=== PATIENT | male | born 1965 | race Hispanic/Latino ===

== ENCOUNTER 2021-09-11 14:16 | Inpatient (IN) | payer OTHER ==
[~2021-09-11] VITALS: Ht 167.6 cm; Wt 127.3 kg
[2021-09-11 15:53] LABS: BASOPHILS % (AUTO) 0.4 % (0.0-5.0); EOSINOPHILS % (AUTO) 0.2 % (0.0-8.0); LYMPHOCYTES % (AUTO) 7.2 % (21.0-51.0); MEAN CORPUSCULAR HEMOGLOBIN 26.9 pg (27.0-33.0); MEAN CORPUSCULAR HGB CONC 32.9 g/dL (32.0-36.0); MEAN CORPUSCULAR VOLUME 81.9 fL (79-99); MONOCYTES % (AUTO) 7.7 % (3.0-13.0); NEUTROPHILS % (AUTO) 81.2 % (40.0-77.0); PLATELET COUNT (AUTO) 549 K/uL (130-400); RED BLOOD CELL COUNT(AUTO) 4.64 MIL/uL (4.50-6.20); RED CELL DISTRIBUTION WIDTH 14.1 % (11.0-15.5); WHITE BLOOD COUNT (AUTO) 28.3 K/uL (4.8-10.8)
[2021-09-11 16:10] LABS: INR 1.28 (0.85-1.15); PROTHROMBIN TIME 13.6 SEC (9.6-11.6)
[2021-09-11 16:15] LABS: CREATININE 1.5 mg/dL (0.5-1.5); POTASSIUM 3.8 mmol/L (3.5-5.1)
[2021-09-11 16:21] LABS: ALBUMIN 2.3 g/dL (3.5-5.0); BILIRUBIN,TOTAL 0.9 mg/dL (0.2-1.0); TOTAL PROTEIN, SERUM 8.9 g/dL (6.0-8.3)
[2021-09-11 16:27] LABS: APPEARANCE,URINE CLOUDY (CLEAR); BILIRUBIN,URINE SMALL (NEGATIVE); COLOR,URINE DARK YELLOW (YELLOW); GLUCOSE, URINE (UA) NEGATIVE (NEGATIVE); KETONES,URINE 5 mg/dL (NEGATIVE); LEUKOCYTE ESTERASE ,URINE SMALL (NEGATIVE); NITRATE,URINE NEGATIVE (NEGATIVE); OCCULT BLOOD,URINE LARGE (NEGATIVE); PROTEIN,URINE 100 mg/dL (NEGATIVE); UROBILINOGEN,URINE 0.2 mg/dL (0.2-1.0)
[2021-09-11] MEDS ORDERED: CEFEPIME HCL 1 GM VIAL ONE (16:36)
[2021-09-11 16:57] LABS: RBC,URINE 51-100 /HPF (0-1); WBC,URINE 51-100 /HPF (0-1)
[2021-09-11 16:58] LABS: BACTERIA,URINE Few /HPF (None Seen); YEAST,URINE BUDDING Moderate /HPF (None Seen)
[2021-09-11] MEDS ORDERED: CEFEPIME HCL 2 GM VIAL IVP SCH (17:00)
[2021-09-11] MEDS ORDERED: KETOROLAC 15MG/ML VIAL (15MG/ML) IV ONE (17:30)
[2021-09-11] MEDS ORDERED: FLUCONAZOLE 100 MG TAB PO ONE (17:30)
[2021-09-11] MEDS ORDERED: 0.9%NACL 1000ML 1,000 ML IV ONE ×2 (17:41→18:00)
[2021-09-11] MEDS ORDERED: IOHEXOL-350 75 ML VIAL IV ONE (17:49)
[2021-09-11] MEDS ORDERED: VANCOMYCIN PROTOCOL PER PHARMACY IV SCH (18:00)
[2021-09-11] MEDS ORDERED: VANCOMYCIN 2GM/500ML NS IV ONE ×2 (18:00)
[2021-09-11] MEDS ORDERED: FLUCONAZOLE 100 MG TAB ONE (21:18)
[2021-09-11] MEDS: LACTATED RINGERS 1000ML 1,000 ML IV SCH (21:21)
[2021-09-11] MEDS: MEROPENEM 1 GM VIAL IVP SCH (21:22)
[2021-09-11] MEDS: INSULIN HUMULIN R 100 UNIT/ML 3ML SQ SCH (21:51)
[2021-09-11] MEDS ORDERED: METF-445 PO (23:52)
[2021-09-11] MEDS ORDERED: LEVO500T90 PO (23:52)
[2021-09-11] MEDS ORDERED: PRAV10TA39 PO (23:52)
[2021-09-11] MEDS ORDERED: SEMA1PEN3 SQ (23:52)
[2021-09-11] MEDS ORDERED: LEVO-170 PO (23:52)
[2021-09-11] MEDS ORDERED: LOSA25TA41 PO (23:52)
[2021-09-12] VITALS (29 sets, daily range): BP systolic 94–130; BP diastolic 55–80
[2021-09-12] MEDS: MEROPENEM 1 GM VIAL IVP SCH ×3 (01:30→17:21)
[2021-09-12] MEDS: LACTATED RINGERS 1000ML 1,000 ML IV SCH ×2 (03:30→21:53)
[2021-09-12 06:06] LABS: BASOPHILS % (AUTO) 0.2 % (0.0-5.0); LYMPHOCYTES % (AUTO) 7.9 % (21.0-51.0); MEAN CORPUSCULAR HEMOGLOBIN 26.5 pg (27.0-33.0); MEAN CORPUSCULAR HGB CONC 32.4 g/dL (32.0-36.0); MEAN CORPUSCULAR VOLUME 81.9 fL (79-99); MONOCYTES % (AUTO) 9.2 % (3.0-13.0); NEUTROPHILS % (AUTO) 77.7 % (40.0-77.0); PLATELET COUNT (AUTO) 520 K/uL (130-400); RED BLOOD CELL COUNT(AUTO) 4.15 MIL/uL (4.50-6.20); RED CELL DISTRIBUTION WIDTH 14.2 % (11.0-15.5); WHITE BLOOD COUNT (AUTO) 26.4 K/uL (4.8-10.8)
[2021-09-12 06:35] LABS: CREATININE 1.3 mg/dL (0.5-1.5); POTASSIUM 3.5 mmol/L (3.5-5.1)
[2021-09-12] MEDS: INSULIN HUMULIN R 100 UNIT/ML 3ML SQ SCH ×2 (08:10→21:53)
[2021-09-12] MEDS: 0.9% NACL 250ML 250 ML IV SCH ×2 (09:45→18:00)
[2021-09-12] MEDS: VANCOMYCIN 750MG VIAL IVPB SCH ×2 (09:45→18:49)
[2021-09-12] MEDS ORDERED: LIDOCAINE PF 100MG/5ML (2%) SYRINGE 5ML ONE (12:17)
[2021-09-12] MEDS ORDERED: SUCCINYLCHOLINE CHLORIDE 20 MG/ML 10 ML VIAL ONE (12:17)
[2021-09-12] MEDS ORDERED: ONDANSETRON 4MG INJ ONE (12:18)
[2021-09-12] MEDS ORDERED: FENTANYL CITRATE PF 50 MCG/1 ML 2ML VIAL ONE ×3 (12:18→15:07)
[2021-09-12] MEDS ORDERED: ROCURONIUM 10MG/1ML SYR 10 MG/ML ML ONE ×2 (12:18→13:01)
[2021-09-12] MEDS ORDERED: PROPOFOL 10 MG/ML 20ML VIAL IV ONE (12:18)
[2021-09-12] MEDS ORDERED: MIDAZOLAM HCL 1 MG/ML 2ML VIAL ONE (12:19)
[2021-09-12] MEDS ORDERED: FENTANYL CITRATE PF 50 MCG/1 ML 5ML AMP IV ONE (13:00)
[2021-09-12] MEDS ORDERED: MEPERIDINE-PF 25 MG/ML SYG ONE (14:07)
[2021-09-12] MEDS ORDERED: GLYCOPYRROLATE 1 MG/5 ML SYRINGE ONE (14:42)
[2021-09-12] MEDS ORDERED: NEOSTIGMINE 5MG/5ML SYR IV ONE (14:42)
[2021-09-12 16:10] LABS: HEMOGLOBIN A1C 10.4 % (4.0-6.0)
[2021-09-13] MEDS: MEROPENEM 1 GM VIAL IVP SCH ×3 (02:45→15:54)
[2021-09-13 03:36] VITALS: BP 105/57
[2021-09-13] MEDS: ACETAMINOPHEN 325 MG TAB PO PRN ×3 (03:36→21:54)
[2021-09-13] MEDS: VANCOMYCIN 750MG VIAL IVPB SCH (05:49)
[2021-09-13] MEDS: 0.9% NACL 250ML 250 ML IV SCH ×2 (05:49→13:00)
[2021-09-13] MEDS: INSULIN HUMULIN R 100 UNIT/ML 3ML SQ SCH ×6 (05:49→21:00)
[2021-09-13 06:10] LABS: BASOPHILS % (AUTO) 0.3 % (0.0-5.0); EOSINOPHILS % (AUTO) 0.7 % (0.0-8.0); HEMATOCRIT 27.5 % (42-54); LYMPHOCYTES % (AUTO) 12.2 % (21.0-51.0); MEAN CORPUSCULAR HEMOGLOBIN 27.6 pg (27.0-33.0); MEAN CORPUSCULAR HGB CONC 33.1 g/dL (32.0-36.0); MEAN CORPUSCULAR VOLUME 83.3 fL (79-99); MONOCYTES % (AUTO) 7.1 % (3.0-13.0); NEUTROPHILS % (AUTO) 73.1 % (40.0-77.0); PLATELET COUNT (AUTO) 451 K/uL (130-400); RED CELL DISTRIBUTION WIDTH 14.7 % (11.0-15.5); WHITE BLOOD COUNT (AUTO) 23.1 K/uL (4.8-10.8)
[2021-09-13 06:24] LABS: ALBUMIN 1.5 g/dL (3.5-5.0); CREATININE 0.9 mg/dL (0.5-1.5); POTASSIUM 3.4 mmol/L (3.5-5.1); TOTAL PROTEIN, SERUM 6.4 g/dL (6.0-8.3)
[2021-09-13] MEDS ORDERED: COMPOUND IV REFRIGERATED 1 EACH IVSOLN MISC PRN (07:00)
[2021-09-13] MEDS: VANCOMYCIN 1.25GM/NS 250ML IVPB SCH ×4 (07:27→21:56)
[2021-09-13] MEDS: LACTATED RINGERS 1000ML 1,000 ML IV SCH (07:28)
[2021-09-13 07:45] VITALS: BP 107/67
[2021-09-13] MEDS: KCL 20 MEQ ERTAB PO SCH (08:56)
[2021-09-13] MEDS: GABAPENTIN 300 MG CAPSULE PO SCH ×2 (09:24→21:53)
[2021-09-13 11:00] VITALS: BP 117/69
[2021-09-13] MEDS ORDERED: COMPOUND IV MISC 1 EACH IVSOLN MISC PRN (13:00)
[2021-09-13 16:00] VITALS: BP 120/67
[2021-09-13] MEDS ORDERED: ACETAMINOPHEN 325 MG TAB PO PRN (18:30)
[2021-09-13 20:00] VITALS: BP 108/58
[2021-09-13] MEDS: INSULIN GLARGINE 100 UNITS/ML 10 ML VIAL SQ SCH (21:51)
[2021-09-14] VITALS: BP 120/60
[2021-09-14] MEDS: MEROPENEM 1 GM VIAL IVP SCH ×3 (01:43→18:19)
[2021-09-14 04:00] VITALS: BP 133/64
[2021-09-14 05:21] LABS: BASOPHILS % (AUTO) 0.3 % (0.0-5.0); EOSINOPHILS % (AUTO) 1.1 % (0.0-8.0); HEMATOCRIT 29.9 % (42-54); MEAN CORPUSCULAR HEMOGLOBIN 26.8 pg (27.0-33.0); MEAN CORPUSCULAR HGB CONC 32.1 g/dL (32.0-36.0); MEAN CORPUSCULAR VOLUME 83.5 fL (79-99); MONOCYTES % (AUTO) 8.2 % (3.0-13.0); NEUTROPHILS % (AUTO) 65.7 % (40.0-77.0); PLATELET COUNT (AUTO) 462 K/uL (130-400); RED BLOOD CELL COUNT(AUTO) 3.58 MIL/uL (4.50-6.20); RED CELL DISTRIBUTION WIDTH 14.5 % (11.0-15.5); WHITE BLOOD COUNT (AUTO) 19.2 K/uL (4.8-10.8)
[2021-09-14 05:44] LABS: % IRON SATURATION 17.8 % (30-44)
[2021-09-14 05:55] LABS: POTASSIUM 3.3 mmol/L (3.5-5.1); THYROID STIMULATING HORMONE 2.47 uIU/mL (0.36-3.74)
[2021-09-14] MEDS: 0.9% NACL 250ML 250 ML IV SCH (06:00)
[2021-09-14 06:15] LABS: CRP QUANTITATIVE 217.1 mg/L (0.00-9.0)
[2021-09-14] MEDS: INSULIN HUMULIN R 100 UNIT/ML 3ML SQ SCH ×7 (06:32→20:44)
[2021-09-14 06:59] LABS: CREATININE 0.8 mg/dL (0.5-1.5)
[2021-09-14 07:53] VITALS: BP 134/66
[2021-09-14] MEDS: KCL 20 MEQ ERTAB PO SCH (08:30)
[2021-09-14] MEDS ORDERED: KCL 20 MEQ ERTAB PO SCH (09:00)
[2021-09-14] MEDS ORDERED: EPOETIN ALFA-EPBX (NON-ESRD) 10,000 UNIT/ML VIAL SQ SCH (09:30)
[2021-09-14] MEDS: GABAPENTIN 300 MG CAPSULE PO SCH ×2 (10:06→21:42)
[2021-09-14] MEDS: VANCOMYCIN 1.25GM/NS 250ML IVPB SCH ×2 (10:08)
[2021-09-14] MEDS: IRON SUCROSE COMPLEX 300 MG in 0.9%NACL 50ML 50 ML IV SCH (10:09)
[2021-09-14 12:00] VITALS: BP 159/74
[2021-09-14] MEDS ORDERED: FLUCONAZOLE 100 MG TAB PO SCH (14:00)
[2021-09-14 16:00] VITALS: BP 130/65
[2021-09-14 20:00] VITALS: BP 130/76
[2021-09-14] MEDS: FLUCONAZOLE 100 MG TAB PO SCH (21:43)
[2021-09-14] MEDS: VANCOMYCIN 1G 1.5 GM in 0.9% NACL 250ML 250 ML IVPB SCH (21:43)
[2021-09-14] MEDS: INSULIN GLARGINE 100 UNITS/ML 10 ML VIAL SQ SCH (21:45)
[2021-09-15] VITALS: BP_SYST 115; BP_SYST 116; BP_DIAS 71; BP_DIAS 80
[2021-09-15] MEDS: MEROPENEM 1 GM VIAL IVP SCH ×3 (01:25→17:12)
[2021-09-15 04:00] VITALS: BP 116/71
[2021-09-15 04:05] LABS: BASOPHILS % (AUTO) 0.6 % (0.0-5.0); EOSINOPHILS % (AUTO) 2.3 % (0.0-8.0); HEMATOCRIT 32.4 % (42-54); MEAN CORPUSCULAR HEMOGLOBIN 27.1 pg (27.0-33.0); MEAN CORPUSCULAR HGB CONC 32.4 g/dL (32.0-36.0); MEAN CORPUSCULAR VOLUME 83.5 fL (79-99); MONOCYTES % (AUTO) 5.2 % (3.0-13.0); NEUTROPHILS % (AUTO) 63.7 % (40.0-77.0); NUCLEATED RED BLOOD CELLS 0.1 % (0.0-0.19); PLATELET COUNT (AUTO) 529 K/uL (130-400); RED BLOOD CELL COUNT(AUTO) 3.88 MIL/uL (4.50-6.20); RED CELL DISTRIBUTION WIDTH 14.6 % (11.0-15.5); WHITE BLOOD COUNT (AUTO) 19.2 K/uL (4.8-10.8)
[2021-09-15 04:32] LABS: CREATININE 0.8 mg/dL (0.5-1.5); POTASSIUM 3.4 mmol/L (3.5-5.1)
[2021-09-15 05:09] LABS: CRP QUANTITATIVE 175.2 mg/L (0.00-9.0)
[2021-09-15] MEDS: 0.9% NACL 250ML 250 ML IV SCH ×2 (06:00→22:36)
[2021-09-15] MEDS: INSULIN HUMULIN R 100 UNIT/ML 3ML SQ SCH ×7 (06:05→21:00)
[2021-09-15 08:07] VITALS: BP 125/77
[2021-09-15] MEDS: GABAPENTIN 300 MG CAPSULE PO SCH ×2 (09:53→22:34)
[2021-09-15] MEDS: KCL 20 MEQ ERTAB PO SCH (09:54)
[2021-09-15] MEDS: IRON SUCROSE COMPLEX 300 MG in 0.9%NACL 50ML 50 ML IV SCH (09:55)
[2021-09-15] MEDS: VANCOMYCIN 1G 1.5 GM in 0.9% NACL 250ML 250 ML IVPB SCH ×2 (09:56→22:36)
[2021-09-15 13:04] VITALS: BP 136/68
[2021-09-15] MEDS: HYDROMORPHONE 1 MG INJ IVP PRN (14:44)
[2021-09-15] MEDS ORDERED: KCL 20 MEQ ERTAB PO SCH (15:00)
[2021-09-15 17:08] VITALS: BP 122/79
[2021-09-15 20:00] VITALS: BP 118/71
[2021-09-15] MEDS: FLUCONAZOLE 100 MG TAB PO SCH (22:35)
[2021-09-15] MEDS: INSULIN GLARGINE 100 UNITS/ML 10 ML VIAL SQ SCH (22:37)
[2021-09-16] VITALS: BP 136/71
[2021-09-16] MEDS: MEROPENEM 1 GM VIAL IVP SCH ×3 (01:14→17:17)
[2021-09-16 04:00] VITALS: BP 117/70
[2021-09-16 04:06] LABS: BASOPHILS % (AUTO) 0.6 % (0.0-5.0); EOSINOPHILS % (AUTO) 3.5 % (0.0-8.0); HEMATOCRIT 31.5 % (42-54); LYMPHOCYTES % (AUTO) 18.3 % (21.0-51.0); MEAN CORPUSCULAR HEMOGLOBIN 27.5 pg (27.0-33.0); MEAN CORPUSCULAR HGB CONC 32.1 g/dL (32.0-36.0); MEAN CORPUSCULAR VOLUME 85.8 fL (79-99); MONOCYTES % (AUTO) 5.6 % (3.0-13.0); NEUTROPHILS % (AUTO) 60.2 % (40.0-77.0); NUCLEATED RED BLOOD CELLS 0.2 % (0.0-0.19); PLATELET COUNT (AUTO) 516 K/uL (130-400); RED BLOOD CELL COUNT(AUTO) 3.67 MIL/uL (4.50-6.20); RED CELL DISTRIBUTION WIDTH 14.6 % (11.0-15.5); WHITE BLOOD COUNT (AUTO) 21.3 K/uL (4.8-10.8)
[2021-09-16 04:28] LABS: CREATININE 0.9 mg/dL (0.5-1.5); CRP QUANTITATIVE 161.3 mg/L (0.00-9.0); MAGNESIUM 1.4 mg/dL (1.80-2.40); POTASSIUM 4.4 mmol/L (3.5-5.1)
[2021-09-16] MEDS: INSULIN HUMULIN R 100 UNIT/ML 3ML SQ SCH ×7 (06:05→20:23)
[2021-09-16 07:58] VITALS: BP 138/70
[2021-09-16] MEDS: ZINC SULFATE 220 CAPSULE PO SCH (10:20)
[2021-09-16] MEDS: ASCORBIC ACID 500 MG TAB PO SCH (10:20)
[2021-09-16] MEDS: GABAPENTIN 300 MG CAPSULE PO SCH ×2 (10:20→20:48)
[2021-09-16] MEDS: IRON SUCROSE COMPLEX 300 MG in 0.9%NACL 50ML 50 ML IV SCH (10:24)
[2021-09-16] MEDS: VANCOMYCIN 1G 1.5 GM in 0.9% NACL 250ML 250 ML IVPB SCH ×2 (10:27→20:49)
[2021-09-16 11:50] VITALS: BP 129/78
[2021-09-16 15:50] VITALS: BP 138/81
[2021-09-16 20:00] VITALS: BP 134/71
[2021-09-16] MEDS: FLUCONAZOLE 100 MG TAB PO SCH (20:48)
[2021-09-16] MEDS: INSULIN GLARGINE 100 UNITS/ML 10 ML VIAL SQ SCH (20:50)
[2021-09-16] MEDS: ACETAMINOPHEN 325 MG TAB PO PRN (23:41)
[2021-09-17] VITALS (7 sets, daily range): BP systolic 106–124; BP diastolic 62–73
[2021-09-17] MEDS: MEROPENEM 1 GM VIAL IVP SCH ×3 (02:02→17:34)
[2021-09-17] MEDS: ACETAMINOPHEN 325 MG TAB PO PRN ×2 (05:21→21:07)
[2021-09-17] MEDS: INSULIN HUMULIN R 100 UNIT/ML 3ML SQ SCH ×7 (06:08→21:11)
[2021-09-17] MEDS: ASCORBIC ACID 500 MG TAB PO SCH (09:44)
[2021-09-17] MEDS: GABAPENTIN 300 MG CAPSULE PO SCH (09:44)
[2021-09-17] MEDS: ZINC SULFATE 220 CAPSULE PO SCH (09:44)
[2021-09-17] MEDS: IRON SUCROSE COMPLEX 300 MG in 0.9%NACL 50ML 50 ML IV SCH (09:51)
[2021-09-17] MEDS: VANCOMYCIN 1G 1.5 GM in 0.9% NACL 250ML 250 ML IVPB SCH ×2 (09:53→21:08)
[2021-09-17] MEDS ORDERED: MAGNESIUM 2GM PREMIX 50ML 50 ML IV SCH (16:30)
[2021-09-17] MEDS ORDERED: RENAL DOSE IV SCH (17:00)
[2021-09-17] MEDS: GABAPENTIN 100 MG CAPSULE PO SCH (21:06)
[2021-09-17] MEDS: FLUCONAZOLE 100 MG TAB PO SCH (21:06)
[2021-09-17] MEDS: INSULIN GLARGINE 100 UNITS/ML 10 ML VIAL SQ SCH (21:10)
[2021-09-18] MEDS: MEROPENEM 1 GM VIAL IVP SCH ×2 (01:20→08:24)
[2021-09-18 05:12] VITALS: BP_SYST 124; BP_SYST 136; BP_DIAS 68; BP_DIAS 72
[2021-09-18 05:20] LABS: BASOPHILS % (AUTO) 0.8 % (0.0-5.0); EOSINOPHILS % (AUTO) 4.9 % (0.0-8.0); HEMATOCRIT 33.7 % (42-54); LYMPHOCYTES % (AUTO) 25.8 % (21.0-51.0); MEAN CORPUSCULAR HEMOGLOBIN 27.2 pg (27.0-33.0); MEAN CORPUSCULAR HGB CONC 31.8 g/dL (32.0-36.0); MEAN CORPUSCULAR VOLUME 85.8 fL (79-99); MONOCYTES % (AUTO) 5.9 % (3.0-13.0); NEUTROPHILS % (AUTO) 53.3 % (40.0-77.0); NUCLEATED RED BLOOD CELLS 0.2 % (0.0-0.19); PLATELET COUNT (AUTO) 640 K/uL (130-400); RED BLOOD CELL COUNT(AUTO) 3.93 MIL/uL (4.50-6.20); WHITE BLOOD COUNT (AUTO) 16.4 K/uL (4.8-10.8)
[2021-09-18 05:34] LABS: BILIRUBIN,TOTAL 0.3 mg/dL (0.2-1.0); CREATININE 0.8 mg/dL (0.5-1.5); CRP QUANTITATIVE 81.2 mg/L (0.00-9.0); MAGNESIUM 1.7 mg/dL (1.80-2.40); PHOSPHORUS 3.4 mg/dL (2.5-4.9); POTASSIUM 4.6 mmol/L (3.5-5.1); TOTAL PROTEIN, SERUM 7.6 g/dL (6.0-8.3)
[2021-09-18 06:31] LABS: ERYTHROCYTE SEDIMENTATION RATE 69 MM/HR (0-20)
[2021-09-18] MEDS: INSULIN HUMULIN R 100 UNIT/ML 3ML SQ SCH ×7 (06:37→20:34)
[2021-09-18 08:00] VITALS: BP 106/70
[2021-09-18] MEDS: ZINC SULFATE 220 CAPSULE PO SCH (08:23)
[2021-09-18] MEDS: GABAPENTIN 100 MG CAPSULE PO SCH ×2 (08:23→20:34)
[2021-09-18] MEDS: ASCORBIC ACID 500 MG TAB PO SCH (08:23)
[2021-09-18] MEDS: VANCOMYCIN 1G 1.5 GM in 0.9% NACL 250ML 250 ML IVPB SCH (08:47)
[2021-09-18 11:37] VITALS: BP 114/68
[2021-09-18] MEDS: HYDROMORPHONE 1 MG INJ IVP PRN (14:16)
[2021-09-18 16:00] VITALS: BP 121/74
[2021-09-18] MEDS: CEFTRIAXONE 2GM VIAL IVP SCH (17:21)
[2021-09-18 20:29] VITALS: BP 103/68
[2021-09-18] MEDS: FLUCONAZOLE 100 MG TAB PO SCH (20:33)
[2021-09-18] MEDS: INSULIN GLARGINE 100 UNITS/ML 10 ML VIAL SQ SCH (20:34)
[2021-09-18] MEDS: ACETAMINOPHEN 325 MG TAB PO PRN (20:35)
[2021-09-18 23:48] VITALS: BP 99/66
[2021-09-19 05:11] VITALS: BP 104/69
[2021-09-19 06:12] LABS: BASOPHILS % (AUTO) 0.6 % (0.0-5.0); HEMATOCRIT 34.8 % (42-54); MEAN CORPUSCULAR HEMOGLOBIN 27.4 pg (27.0-33.0); MEAN CORPUSCULAR HGB CONC 31.9 g/dL (32.0-36.0); MEAN CORPUSCULAR VOLUME 85.9 fL (79-99); MONOCYTES % (AUTO) 6.1 % (3.0-13.0); NEUTROPHILS % (AUTO) 59.5 % (40.0-77.0); PLATELET COUNT (AUTO) 672 K/uL (130-400); RED BLOOD CELL COUNT(AUTO) 4.05 MIL/uL (4.50-6.20); RED CELL DISTRIBUTION WIDTH 15.7 % (11.0-15.5); WHITE BLOOD COUNT (AUTO) 16.1 K/uL (4.8-10.8)
[2021-09-19] MEDS: INSULIN HUMULIN R 100 UNIT/ML 3ML SQ SCH ×7 (06:32→21:14)
[2021-09-19 06:35] LABS: ALBUMIN 2.1 g/dL (3.5-5.0); BILIRUBIN,TOTAL 0.3 mg/dL (0.2-1.0); CREATININE 0.8 mg/dL (0.5-1.5); POTASSIUM 4.7 mmol/L (3.5-5.1); TOTAL PROTEIN, SERUM 7.9 g/dL (6.0-8.3)
[2021-09-19 08:00] VITALS: BP 108/71
[2021-09-19] MEDS: ZINC SULFATE 220 CAPSULE PO SCH (08:03)
[2021-09-19] MEDS: MAGNESIUM OXIDE 400 MG TABLET PO SCH (08:03)
[2021-09-19] MEDS: GABAPENTIN 100 MG CAPSULE PO SCH ×2 (08:04→20:18)
[2021-09-19] MEDS: ASCORBIC ACID 500 MG TAB PO SCH (08:04)
[2021-09-19 12:00] VITALS: BP 130/68
[2021-09-19 16:00] VITALS: BP 135/75
[2021-09-19] MEDS: CEFTRIAXONE 2GM VIAL IVP SCH (17:15)
[2021-09-19 20:00] VITALS: BP 113/67
[2021-09-19] MEDS: FLUCONAZOLE 100 MG TAB PO SCH (20:18)
[2021-09-19] MEDS: ACETAMINOPHEN 325 MG TAB PO PRN (20:19)
[2021-09-19] MEDS: INSULIN GLARGINE 100 UNITS/ML 10 ML VIAL SQ SCH (21:14)
[2021-09-20] VITALS: BP 103/68
[2021-09-20 04:00] VITALS: BP 102/68
[2021-09-20 04:57] LABS: BASOPHILS % (AUTO) 0.4 % (0.0-5.0); EOSINOPHILS % (AUTO) 4.8 % (0.0-8.0); HEMATOCRIT 37.1 % (42-54); LYMPHOCYTES % (AUTO) 27.6 % (21.0-51.0); MEAN CORPUSCULAR HEMOGLOBIN 26.8 pg (27.0-33.0); MEAN CORPUSCULAR HGB CONC 30.7 g/dL (32.0-36.0); MEAN CORPUSCULAR VOLUME 87.1 fL (79-99); MONOCYTES % (AUTO) 6.3 % (3.0-13.0); NEUTROPHILS % (AUTO) 55.7 % (40.0-77.0); PLATELET COUNT (AUTO) 671 K/uL (130-400); RED BLOOD CELL COUNT(AUTO) 4.26 MIL/uL (4.50-6.20); RED CELL DISTRIBUTION WIDTH 16.3 % (11.0-15.5); WHITE BLOOD COUNT (AUTO) 13.9 K/uL (4.8-10.8)
[2021-09-20 05:15] LABS: ALBUMIN 2.3 g/dL (3.5-5.0); BILIRUBIN,TOTAL 0.2 mg/dL (0.2-1.0); CREATININE 0.9 mg/dL (0.5-1.5); POTASSIUM 4.9 mmol/L (3.5-5.1); TOTAL PROTEIN, SERUM 8.4 g/dL (6.0-8.3)
[2021-09-20] MEDS: INSULIN HUMULIN R 100 UNIT/ML 3ML SQ SCH ×7 (06:32→20:38)
[2021-09-20 07:59] VITALS: BP 105/73
[2021-09-20] MEDS: GABAPENTIN 100 MG CAPSULE PO SCH ×2 (09:07→20:38)
[2021-09-20] MEDS: ASCORBIC ACID 500 MG TAB PO SCH (09:07)
[2021-09-20] MEDS: MAGNESIUM OXIDE 400 MG TABLET PO SCH (09:07)
[2021-09-20] MEDS: ZINC SULFATE 220 CAPSULE PO SCH (09:07)
[2021-09-20 11:11] VITALS: BP 104/69
[2021-09-20 15:11] LABS: INR 1.08 (0.85-1.15); PROTHROMBIN TIME 11.7 SEC (9.6-11.6)
[2021-09-20 15:13] LABS: PARTIAL THROMBOPLASTIN TIME 29.4 SEC (26.3-35.5)
[2021-09-20 15:36] VITALS: BP 107/76
[2021-09-20] MEDS: CEFTRIAXONE 2GM VIAL IVP SCH (17:17)
[2021-09-20 20:00] VITALS: BP 109/70
[2021-09-20] MEDS: FLUCONAZOLE 100 MG TAB PO SCH (20:38)
[2021-09-20] MEDS: INSULIN GLARGINE 100 UNITS/ML 10 ML VIAL SQ SCH (20:39)
[2021-09-20] MEDS: ACETAMINOPHEN 325 MG TAB PO PRN (20:48)
[2021-09-21] VITALS: BP 107/69
[2021-09-21 04:00] VITALS: BP 101/63
[2021-09-21] MEDS: INSULIN HUMULIN R 100 UNIT/ML 3ML SQ SCH ×7 (05:55→19:51)
[2021-09-21 08:06] VITALS: BP 111/67
[2021-09-21 09:52] LABS: HEMATOCRIT 36.7 % (42-54); MEAN CORPUSCULAR HEMOGLOBIN 27.5 pg (27.0-33.0); MEAN CORPUSCULAR HGB CONC 31.9 g/dL (32.0-36.0); MEAN CORPUSCULAR VOLUME 86.2 fL (79-99); NUCLEATED RED BLOOD CELLS 0.1 % (0.0-0.19); RED BLOOD CELL COUNT(AUTO) 4.26 MIL/uL (4.50-6.20); RED CELL DISTRIBUTION WIDTH 16.6 % (11.0-15.5); WHITE BLOOD COUNT (AUTO) 14.6 K/uL (4.8-10.8)
[2021-09-21 10:09] LABS: POTASSIUM 4.2 mmol/L (3.5-5.1)
[2021-09-21 11:17] VITALS: BP 114/51
[2021-09-21] MEDS: ASCORBIC ACID 500 MG TAB PO SCH (11:30)
[2021-09-21] MEDS: GABAPENTIN 100 MG CAPSULE PO SCH ×2 (11:30→19:49)
[2021-09-21] MEDS: ZINC SULFATE 220 CAPSULE PO SCH (11:31)
[2021-09-21] MEDS: MAGNESIUM OXIDE 400 MG TABLET PO SCH (11:31)
[2021-09-21] MEDS: ACETAMINOPHEN 325 MG TAB PO PRN ×2 (11:31→19:50)
[2021-09-21 15:53] VITALS: BP 112/70
[2021-09-21] MEDS ORDERED: HYDROMORPHONE 1 MG INJ IVP PRN (17:00)
[2021-09-21] MEDS: CEFTRIAXONE 2GM VIAL IVP SCH (17:01)
[2021-09-21 19:41] VITALS: BP 103/66
[2021-09-21] MEDS: FLUCONAZOLE 100 MG TAB PO SCH (19:49)
[2021-09-21] MEDS: INSULIN GLARGINE 100 UNITS/ML 10 ML VIAL SQ SCH (19:50)
[2021-09-22] VITALS (7 sets, daily range): BP systolic 97–120; BP diastolic 67–75
[2021-09-22] MEDS: INSULIN HUMULIN R 100 UNIT/ML 3ML SQ SCH ×8 (05:41→20:40)
[2021-09-22 08:35] LABS: HEMATOCRIT 36.2 % (42-54); MEAN CORPUSCULAR HEMOGLOBIN 26.8 pg (27.0-33.0); MEAN CORPUSCULAR HGB CONC 31.2 g/dL (32.0-36.0); MEAN CORPUSCULAR VOLUME 85.8 fL (79-99); RED BLOOD CELL COUNT(AUTO) 4.22 MIL/uL (4.50-6.20); RED CELL DISTRIBUTION WIDTH 16.5 % (11.0-15.5); WHITE BLOOD COUNT (AUTO) 14.2 K/uL (4.8-10.8)
[2021-09-22 08:42] LABS: CREATININE 0.9 mg/dL (0.5-1.5); POTASSIUM 4.5 mmol/L (3.5-5.1)
[2021-09-22] MEDS: MAGNESIUM OXIDE 400 MG TABLET PO SCH (08:54)
[2021-09-22] MEDS: GABAPENTIN 100 MG CAPSULE PO SCH ×2 (08:54→20:30)
[2021-09-22] MEDS: ASCORBIC ACID 500 MG TAB PO SCH (08:54)
[2021-09-22] MEDS: ZINC SULFATE 220 CAPSULE PO SCH (08:54)
[2021-09-22] MEDS: CEFTRIAXONE 2GM VIAL IVP SCH (17:02)
[2021-09-22] MEDS: FLUCONAZOLE 100 MG TAB PO SCH (20:30)
[2021-09-22] MEDS: INSULIN GLARGINE 100 UNITS/ML 10 ML VIAL SQ SCH (20:41)
[2021-09-22] MEDS: ACETAMINOPHEN 325 MG TAB PO PRN (20:42)
[2021-09-23 04:07] VITALS: BP 114/70
[2021-09-23] MEDS: INSULIN HUMULIN R 100 UNIT/ML 3ML SQ SCH ×7 (05:17→21:32)
[2021-09-23 06:03] LABS: BASOPHILS % (AUTO) 0.4 % (0.0-5.0); EOSINOPHILS % (AUTO) 2.9 % (0.0-8.0); HEMATOCRIT 35.7 % (42-54); LYMPHOCYTES % (AUTO) 29.8 % (21.0-51.0); MEAN CORPUSCULAR HEMOGLOBIN 26.9 pg (27.0-33.0); MEAN CORPUSCULAR HGB CONC 31.4 g/dL (32.0-36.0); MEAN CORPUSCULAR VOLUME 85.6 fL (79-99); MONOCYTES % (AUTO) 7.4 % (3.0-13.0); NEUTROPHILS % (AUTO) 57.5 % (40.0-77.0); PLATELET COUNT (AUTO) 572 K/uL (130-400); RED BLOOD CELL COUNT(AUTO) 4.17 MIL/uL (4.50-6.20); RED CELL DISTRIBUTION WIDTH 16.6 % (11.0-15.5); WHITE BLOOD COUNT (AUTO) 12.8 K/uL (4.8-10.8)
[2021-09-23 06:23] LABS: CREATININE 0.9 mg/dL (0.5-1.5); MAGNESIUM 1.8 mg/dL (1.80-2.40); POTASSIUM 4.1 mmol/L (3.5-5.1)
[2021-09-23 08:00] VITALS: BP 113/69
[2021-09-23] MEDS: ASCORBIC ACID 500 MG TAB PO SCH (08:42)
[2021-09-23] MEDS: ZINC SULFATE 220 CAPSULE PO SCH (08:42)
[2021-09-23] MEDS: MAGNESIUM OXIDE 400 MG TABLET PO SCH (08:42)
[2021-09-23] MEDS: GABAPENTIN 100 MG CAPSULE PO SCH ×2 (08:43→19:49)
[2021-09-23 12:00] VITALS: BP 110/62
[2021-09-23 16:00] VITALS: BP 106/76
[2021-09-23] MEDS: CEFTRIAXONE 2GM VIAL IVP SCH (16:47)
[2021-09-23] MEDS: INSULIN GLARGINE 100 UNITS/ML 10 ML VIAL SQ SCH (19:48)
[2021-09-23] MEDS: FLUCONAZOLE 100 MG TAB PO SCH (19:50)
[2021-09-23 20:29] VITALS: BP 114/72
[2021-09-23] MEDS: ACETAMINOPHEN 325 MG TAB PO PRN (21:31)
[2021-09-24 00:05] VITALS: BP 119/70
== END 2021-09-24 00:03 | DRG 853 ==
LOC: EDH 14:16 → EDHIP 14:17 → 2DH 09-12 19:35 → 4DH 09-13 18:10 → 3BH 09-17 21:50
PROVIDERS: ADMIT Internal Medicine; ATTEND Internal Medicine
PROC: 0T9B30Z Drainage of Bladder with Drainage Device, Percutaneous Approach (ICD-10-PCS; 2021-09-12)
PROC: 0VB50ZZ Excision of Scrotum, Open Approach (ICD-10-PCS; principal; 2021-09-12 13:03)
PROC: 0T7D3ZZ Dilation of Urethra, Percutaneous Approach (ICD-10-PCS; 2021-09-12 13:03)
DX: A41.9 Sepsis, unspecified organism (principal); E43 Unspecified severe protein-calorie malnutrition; N39.0 Urinary tract infection, site not specified; N17.9 Acute kidney failure, unspecified; Z68.42 Body mass index [BMI] 45.0-49.9, adult; E87.1 Hypo-osmolality and hyponatremia; E87.6 Hypokalemia; E11.65 Type 2 diabetes mellitus with hyperglycemia; Z20.822 Contact with and (suspected) exposure to COVID-19; E78.00 Pure hypercholesterolemia, unspecified; I10 Essential (primary) hypertension; N49.2 Inflammatory disorders of scrotum; B95.4 Other streptococcus as the cause of diseases classified elsewhere; E78.5 Hyperlipidemia, unspecified; N49.3 Fournier gangrene; E66.01 Morbid (severe) obesity due to excess calories; N50.89 Other specified disorders of the male genital organs; N35.819 Other urethral stricture, male, unspecified site; B95.1 Streptococcus, group B, as the cause of diseases classified elsewhere; E11.40 Type 2 diabetes mellitus with diabetic neuropathy, unspecified; N13.9 Obstructive and reflux uropathy, unspecified; J43.9 Emphysema, unspecified; N48.0 Leukoplakia of penis; Q55.64 Hidden penis; Z91.81 History of falling; Z88.0 Allergy status to penicillin; Z79.84 Long term (current) use of oral hypoglycemic drugs; Z87.440 Personal history of urinary (tract) infections; Z83.3 Family history of diabetes mellitus; Z80.9 Family history of malignant neoplasm, unspecified
CPT/HCPCS: 36415; 71045; 74177; 76870; 80048; 80053; 80202; 81001; 82550; 82728; 82948; 83036; 83540; 83550; 83605; 83735; 84100; 84145; 84443; 84484; 85025; 85027; 85045; 85610; 85651; 85730; 86140; 86592; 86701; 87040; 87070; 87076; 87077; 87088; 87186; 87390; 87486; 87635; 87797; 93005; 97039; A4344; C1769; C1894; C2627; C9803; G0378; J0330; J0692; J0696; J1170; J1756; J1815; J2001; J2175; J2185; J2250; J2405; J2704; J2710; J3010; J3370; J3475; J3490; J7030; J7040; J7050; J7120; Q9967

== ENCOUNTER → 2021-10-24 | Outpatient (CLI) | payer OTHER, SELFPAY ==
[~2021-10-24] MED LIST: HONEY 1 APPL/ML TUBE TP ONE; LIDOCAINE HCL 4% LTA SOL 4 ML VIAL TP ONE
== END ==
LOC: WHH 10:02
PROVIDERS: ATTEND Family Medicine
DX: T81.89XA Other complications of procedures, not elsewhere classified, initial encounter (principal); S31.30XA Unspecified open wound of scrotum and testes, initial encounter; E11.52 Type 2 diabetes mellitus with diabetic peripheral angiopathy with gangrene; N49.3 Fournier gangrene; E11.40 Type 2 diabetes mellitus with diabetic neuropathy, unspecified; E11.628 Type 2 diabetes mellitus with other skin complications; E11.65 Type 2 diabetes mellitus with hyperglycemia; E78.5 Hyperlipidemia, unspecified; I10 Essential (primary) hypertension; E78.00 Pure hypercholesterolemia, unspecified; N13.9 Obstructive and reflux uropathy, unspecified; N50.89 Other specified disorders of the male genital organs; N49.2 Inflammatory disorders of scrotum; E66.01 Morbid (severe) obesity due to excess calories; Z68.42 Body mass index [BMI] 45.0-49.9, adult; Z88.0 Allergy status to penicillin; Z79.84 Long term (current) use of oral hypoglycemic drugs; Z79.4 Long term (current) use of insulin; X58.XXXA Exposure to other specified factors, initial encounter; Y93.89 Activity, other specified; Y92.89 Other specified places as the place of occurrence of the external cause; Y99.8 Other external cause status; Y92.238 Other place in hospital as the place of occurrence of the external cause; Y83.8 Other surgical procedures as the cause of abnormal reaction of the patient, or of later complication, without mention of misadventure at the time of the procedure
CPT/HCPCS: 99215; A4450; A6209; G0463